=== PATIENT | female | born 1960 | race Caucasian/White ===

== ENCOUNTER 2022-08-09 16:00 | Emergency (ER) | payer OTHER ==
[~2022-08-09] VITALS: Ht 170.2 cm; Wt 70.3 kg
[~2022-08-09 16:00] MED LIST: HYDACE5 PO; IBUP800 PO; METPRE4DP PO; OXYACE5T PO; PENVK500 PO; PRED20 PO; RXOXYACE PO; TRIA80TC TOP
[2022-08-09 16:15] VITALS: BP 161/125
[2022-08-09] MEDS ORDERED: Norco 5-325 Ta1 EACH PO (18:13)
== END 2022-08-09 18:36 | disposition home or self-care (01) ==
LOC: ER 16:00
DX: S42.152A Displaced fracture of neck of scapula, left shoulder, initial encounter for closed fracture (principal); S42.142A Displaced fracture of glenoid cavity of scapula, left shoulder, initial encounter for closed fracture; S42.112A Displaced fracture of body of scapula, left shoulder, initial encounter for closed fracture; W17.89XA Other fall from one level to another, initial encounter; Z87.891 Personal history of nicotine dependence
CPT/HCPCS: 73030; 99283-25; A9270